=== PATIENT | female | born 1945 | race Caucasian/White ===

== ENCOUNTER 2017-03-29 06:52 | Day surgery (SDC) | payer MEDICARE, OTHER ==
[2017-03-29] MEDS ORDERED: FENTANYL PF 100MCG/2ML VIAL IV ONE (06:53)
[2017-03-29] MEDS ORDERED: MIDAZOLAM HCL 2MG/2ML VIAL IV ONE (06:53)
[2017-03-29] MEDS ORDERED: LIDOCAINE 2% MDV (20MG/ML) 20ML VIAL IV ONE (06:53)
[2017-03-29] MEDS ORDERED: LIDOCAINE 1% W/EPI 1:200,000 MPF 30ML SQ ONE (06:53)
[2017-03-29] MEDS ORDERED: PROPOFOL 10 MG/ML VIAL IV ONE (06:53)
--- NOTE | 2017-03-30 12:30 | Operative Note ---
DATE OF SURGERY: 03/29/2017 PREOPERATIVE DIAGNOSES: 1. 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 2. 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 POSTOPERATIVE DIAGNOSES: 1. 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 2. 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 Surgeon: Jermaine Hart MD Anesthesia: Local with sedation. DRAINS: None. SPECIMENS: None. COMPLICATIONS: None. Indication: The patient is a very nice 71-year-old woman who has significant visual field obstruction greater than 40 degrees in the upper outer gaze secondary to significant upper lid skin weighting down her eyelids. She is here for corrective blepharoplasty. PROCEDURE: The patient was interviewed preoperatively and the operative plan was reviewed. She was marked while awake identifying the supratarsal folds and then marking an appropriate but conservative skin resection. She was then taken to the operating room and under satisfactory sedation was prepped and draped and blocked in the usual sterile manner. Once we had good blanching, we then proceeded with skin muscle resection using needle point cautery. With gentle pressure on the globe, we identified the remaining fat pocket mostly in the medial compartment. We then took these down meticulously again with good hemostasis. Removed the offending bulging fat pockets. Then after meticulous hemostasis, we closed with a subcuticular 6-0 Prolene bilaterally. She tolerated the procedure well without complication. DAVID
== END 2017-03-29 08:45 | disposition home or self-care (01) ==
LOC: SUR 06:52
PROVIDERS: ATTEND Plastic Surgery
DX: H02.834 Dermatochalasis of left upper eyelid (principal); H02.831 Dermatochalasis of right upper eyelid; H02.31 Blepharochalasis right upper eyelid; H02.34 Blepharochalasis left upper eyelid; I10 Essential (primary) hypertension
CPT/HCPCS: 15823; 00103; J3010